=== PATIENT | female | born 1980 | race Caucasian/White ===

== ENCOUNTER 2023-07-12 08:29 | Emergency (ER) | payer SELFPAY ==
[2023-07-12] MEDS ORDERED: Ibuprofen 800 MG TAB ONE (08:58)
== END 2023-07-12 09:58 | disposition home or self-care (01) ==
LOC: MADERS 08:29
DX: R50.9 Fever, unspecified (principal); R51.9 Headache, unspecified; R05.9 Cough, unspecified; J02.9 Acute pharyngitis, unspecified; F17.290 Nicotine dependence, other tobacco product, uncomplicated; Z20.822 Contact with and (suspected) exposure to COVID-19
CPT/HCPCS: 71046; 87081; 87430; 87635; 87804

== ENCOUNTER 2024-04-03 09:36 | Emergency (ER) | payer SELFPAY ==
[2024-04-03 10:38] LABS: SARS-CoV-2 E Target Positive; SARS-CoV-2 N2 Target Positive; SARS-CoV-2 NAA Rapid Test DETECTED (NotDetected); SARS-CoV-2 RdRP gene Positive
== END 2024-04-03 11:01 | disposition home or self-care (01) ==
LOC: MADERS 09:36
DX: U07.1 COVID-19 (principal); F17.290 Nicotine dependence, other tobacco product, uncomplicated
CPT/HCPCS: 87081; 87430; 87804; 99283; U0002

== ENCOUNTER 2025-07-01 14:54 | Emergency (ER) | payer SELFPAY | END 2025-07-01 16:24 | disposition home or self-care (01) | LOC: MADERS 14:54 | DX: J06.9 Acute upper respiratory infection, unspecified (principal); B34.9 Viral infection, unspecified; J33.9 Nasal polyp, unspecified; F17.290 Nicotine dependence, other tobacco product, uncomplicated | CPT/HCPCS: 99283 ==